=== PATIENT | female | born 2005 | race Two or more races ===

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

== ENCOUNTER 2025-04-03 16:36 | Emergency (ER) | payer MEDICAID ==
[~2025-04-03] VITALS: Ht 170.2 cm; Wt 109.0 kg
[2025-04-03 16:44] VITALS: TEMP 97
[2025-04-03 16:50] VITALS: PULSE 57; RESP 17; O2SAT 98
[2025-04-03] MEDS: MORPHINE SULFATE INJ 2 MG/ml SYRG IV ONE (17:20)
[2025-04-03] MEDS: ONDANSETRON HCL 4 MG/2 ML VIAL IV ONE (17:20)
[2025-04-03] MEDS: SODIUM CHLORIDE 0.9% 1,000 ML IV ONE (17:20)
[2025-04-03 19:01] LABS: Hematocrit 44.0 % (36.0-46.0); Hemoglobin 14.7 g/dL (12.2-16.2); Mean Corpuscular Hemoglobin 29.2 pg (28.0-32.0); Mean Corpuscular Volume 87.3 fL (80.0-100.0); Nucleated Red Blood Cells % 0.0 %
--- NOTE | 2025-04-03 19:11 | ED.PDOC ---
GI ASSESSMENT HPI Comments 19-year-old female who came to ER for abdominal pain. Patient has been drinking alcohol last night, shortly afterwards she started having epigastric abdominal pain followed they bouts of nausea and vomiting. She appeared very pale and diaphoretic. Patient denies any possibility of Chief Complaint: Abdominal Pain Time Seen by MD: 19:11 Reviewed Notes: Nurses Notes Allergies: Coded Allergies: NO KNOWN ALLERGIES (Unverified , 04/03/25) Home Meds Active Scripts Famotidine (PEPCID TABLET) 20 Mg Tb, 1 TAB PO BID PRN, #60 TAB 5 Refills Prov:LOAN REYNA MD 04/03/25 Ondansetron HCl (Ondansetron Hydrochloride) 8 Mg Tab, 8 MG PO Q6HP PRN, #30 TAB Prov:LOAN REYNA MD 04/03/25 Information Source: Patient Mode of Arrival: EMS Timing: Hours Duration: Since onset Quality: Burning, Cramping Vomitus: Watery Stool: Normal Recent: Ingestion of ETOH Past Medical History PAST MEDICAL HISTORY: PUD Surgical History: Appendectomy IMPROVEMENT ADVISOR History: Denies all IMPROVEMENT ADVISOR Hx Family History Family History: Reviewed,noncontributory to illness Social History Smoker: Non-Smoker Alcohol: Denies ETOH Use Drugs: Denies Drug Use Lives In: Home Constitutional: denies: chills, diaphoresis, fatigue, fever, malaise, sweats, weakness, others EENTM: denies: blurred vision, double vision, ear bleeding, ear discharge, ear drainage, ear pain, ear ringing, eye pain, eye redness, hearing loss, mouth pain, mouth swelling, nasal discharge, nose bleeding, nose congestion, nose pain, photophobia, tearing, throat pain, throat swelling, voice changes, others Respiratory: denies: cough, hemoptysis, orthopnea, SOB at rest, shortness of breath, SOB with excertion, stridor, wheezing, others Cardiovascular: denies: chest pain, dizzy spells, diaphoresis, Dyspnea on exertion, edema, irregular heart beat, left arm pain, lightheadedness, palpitations, PND, syncope, others Gastrointestinal: reports: abdominal pain, nausea, vomiting; denies: abdomen distended, blood streaked bowels, constipated, diarrhea, dysphagia, difficulty swallowing, hematemesis, melena, poor appetite, poor fluid intake, rectal bleeding, rectal pain, others Genitourinary: denies: abnormal vagina bleeding, burning, dyspareunia, dysuria, flank pain, frequency, hematuria, incontinence, pain, , vagina discharge, urgency, others Neurological: denies: dizziness, fainting, headache, left sided numbness, left sided weakness, numbness, paresthesia, pre-existing deficit, right sided numbness, right sided weakness, seizure, speech problems, tingling, tremors, weakness, others Musculoskeletal: denies: back pain, gout, joint pain, joint swelling, muscle pain, muscle stiffness, neck pain, others Integumetry: denies: bruises, change in color, change in hair/nails, dryness, laceration, lesions, lumps, rash, wounds, others Allergic/Immunocompromised: denies: Difficulty Healing, Frequent Infections, Hives, Itching, others Hematologic/Lymphatic: denies: anemia, blood clots, easy bleeding, easy bruising, swollen glands, others Endocrine: denies: excessive hunger, excessive sweating, excessive thirst, excessive urination, flushing, intolerance to cold, intolerance to heat, unexplained weight gain, unexplained weight loss, others Psychiatric: denies: anxiety, bipolar disorder, depression, hopeless, panic dis order, schizophrenia, sleepless, suicidal, others Physical Exam General Appearance: No Apparent Distress, Normal HEENT: Normal ENT Inspection, Pharynx Normal, TMs Normal Neck: Full Range of Motion, Non-Tender, Normal, Normal Inspection Respiratory: Chest Non-Tender, Lungs Clear, No Accessory Muscle Use, No Respiratory Distress, Normal Breath Sounds Cardiovascular: No Edema, No JVD, No Murmur, No Gallop, Normal Peripheral Pulses, Regular Rate/Rhythm Breast Exam: Deferred Gastrointestinal: Epigastric, No Organomegaly, No Pulsatile Mass, Normal Bowel Sounds, Soft, Tenderness Genitalia: Deferred Pelvic: Deferred Rectal: Deferred Extremities: No calf tenderness, Normal capillary refill, Normal inspection, Normal range of motion, Non-tender, No pedal edema Musculoskeletal : Apperance: Normal Neurologic: Alert, tourist camp attendant II-XII nml as Tested, No Motor Deficits, Normal Affect, Normal Mood, No Sensory Deficits Cerebellar Function: Normal Reflexes: Normal Skin: Dry, Normal Color, Warm Lymphatic: No Adenopathy Was a procedure done? Was a procedure done?: No GI differential Dx Differential Diagnosis: Diverticular disease, Gastritis/PUD, Gastroenteritis, Pancreatitis, UTI, Urolithiasis X-Ray, Labs, Meds, VS Vital Signs Date Time Temp Pulse Resp B/P (MAP) Pulse Ox O2 Delivery O2 Flow Rate FiO2 04/03/25 23:39 59 12 130/72 (91) 99 04/03/25 21:50 64 12 115/62 (79) 100 04/03/25 19:33 98 Room Air* 0 21 04/03/25 19:19 71 16 118/54 04/03/25 19:18 74 16 118/54 (75) 98 04/03/25 18:15 61 18 107/66 04/03/25 16:50 57 17 146/83 (104) 98 04/03/25 16:50 57 17 98 Room Air* 0 04/03/25 16:44 97.0 78 26 108/58 100 97.0 Lab Test 04/03/25 20:30 04/03/25 18:40 Range/Units Urine Color Yellow Yellow Urine Clarity Clear Clear Urine pH 7.0 5.0-9.0 Urine Specific [place] 1.029 1.001-1.035 Urine Protein Trace H Negative Urine Ketones 2+ H Negative Urine Blood Trace H Negative /uL Urine Nitrite Negative Negative Urine Bilirubin Negative Negative Urine Urobilinogen Normal Negative mg/dL Urine Leukocyte Esterase Negative Negative /uL Urine RBC 4 0 - 4 /hpf Urine Microscopic WBC 1 0-5 /HPF Urine Squamous Epithelial Cells Few <5 /hpf Urine Bacteria Few H None Seen /hpf Urine Mucus Few None Seen Urine Glucose Normal Normal mg/dL Urine Test Negative Negative White Blood Count 15.6 H 4.4-10.8 10^3/uL Red Blood Count 5.04 4.0-5.20 10^6/uL Hemoglobin 14.7 12.2-16.2 g/dL Hematocrit 44.0 36.0-46.0 % Mean Corpuscular Volume 87.3 80.0-100.0 fL Mean Corpuscular Hemoglobin 29.2 28.0-32.0 pg Mean Corpuscular Hemoglobin Concent 33.4 32.0-36.0 g/dL Red Cell Distribution Width 13.1 11.8-14.3 % Platelet Count 319 140-450 10^3/uL Mean Platelet Volume 8.3 6.9-10.8 fL Neutrophils (%) (Auto) 89.3 H 37.0-80.0 % Lymphocytes (%) (Auto) 7.0 L 10.0-50.0 % Monocytes (%) (Auto) 3.4 0.0-12.0 % Eosinophils (%) (Auto) 0.0 0.0-7.0 % Basophils (%) (Auto) 0.3 0.0-2.0 % Neutrophils # (Auto) 14.0 H 1.6-8.6 10 ^3/uL Lymphocytes # (Auto) 1.1 0.4-5.4 10 ^3/uL Monocytes # (Auto) 0.5 0-1.3 10 ^3/uL Eosinophils # (Auto) 0 0-0.8 10 ^3/uL Basophils # (Auto) 0 0-0.2 10 ^3/uL Nucleated Red Blood Cells 0.0 % Sodium Level 142 136-145 mmol/L Potassium Level 4.0 3.5-5.1 mmol/L Chloride Level 110 H 98-107 mmol/L Carbon Dioxide Level 20 20-31 mmol/L Anion Gap 12 5-15 Blood Urea Nitrogen 5 L 9-23 mg/dL Creatinine 0.70 0.550-1.02 mg/dL Glomerular Filtration Rate Calc 128 >90 mL/min BUN/Creatinine Ratio 7.1 L 10.0-20.0 Serum Glucose 92 74-106 mg/dL Calcium Level 8.7 8.7-10.4 mg/dL Total Bilirubin 0.5 0.2-1.0 mg/dL Aspartate Amino Transferase (AST) 27 13-40 U/L Alanine Aminotransferase (ALT) 17 7-40 U/L Alkaline Phosphatase 74 46-116 U/L Total Protein 7.7 5.7-8.2 g/dL Albumin 4.4 3.2-4.8 g/dL Lipase 32 12-53 U/L Beta HCG, Quantitative < 0.0 L 1.5-4.2 mIU/mL Plasma/Serum Blood Alcohol < 3.0 <10 mg/dL Current Medications Medications (Trade) Dose Ordered Sig/Conor Route Start Time Stop Time Status Last Admin Sodium Chloride 1,000 ml @ 1,000 mls/hr Q1H ONCE IV 04/03/25 16:45 04/03/25 17:44 DC 04/03/25 17:20 Morphine Sulfate 2 mg ONCE ONCE IV 04/03/25 16:45 04/03/25 16:46 DC 04/03/25 18:15 Ondansetron HCl (Zofran) 4 mg ONCE ONCE IV 04/03/25 16:45 04/03/25 16:46 DC 04/03/25 17:20 Time of 1ST Reevaluation: 19:09 Reevaluation 1ST: Unchanged Patient Education/Counseling: Diagnosis, Treatment Family Education/Counseling: Diagnosis, Treatment SEPSIS Sepsis Screen Date sepsis recognized/suspect: Apr 03, 2025 Time Sepsis recognized/suspect: 1649 Recent Procedure: No On Antibiotic Therapy: No Respiratory Rate >20: No Heart Rate >90: No Temp<36 C (96.8 F) or >38.3 C: No SBP <90 or MAP <65 mmHG: No New Acute Mental Status Change: No Is the patient on CPAP, BIPAP,: No Physician Orders Ct Ab Pel With Iv Con Only (04/03/25 20:07) Vital Signs Date Time Temp Pulse Resp B/P (MAP) Pulse Ox O2 Delivery O2 Flow Rate FiO2 04/03/25 23:39 59 12 130/72 (91) 99 04/03/25 21:50 64 12 115/62 (79) 100 04/03/25 19:33 98 Room Air* 0 04/03/25 19:19 71 16 118/54 04/03/25 19:18 74 16 118/54 (75) 98 04/03/25 18:15 61 18 107/66 04/03/25 16:50 57 17 146/83 (104) 98 04/03/25 16:50 57 17 98 Room Air* 0 21 04/03/25 16:44 97.0 78 26 108/58 100 97.0 Laboratory Tests Test 04/03/25 18:40 White Blood Count 15.6 10^3/uL (4.4-10.8) H Departure 1 Departure Time of Disposition: 21:00 Impression: Primary Impression: Nausea and vomiting Additional Impression: Upper abdominal pain Disposition: HOME / SELF CARE / HOMELESS Condition: Stable e-Prescriptions Famotidine (PEPCID TABLET) 20 Mg Tb 1 TAB PO BID PRN, #60 TAB 5 Refills Prov: LOAN REYNA MD 04/03/25 Ondansetron HCl (Ondansetron Hydrochloride) 8 Mg Tab 8 MG PO Q6HP PRN, #30 TAB Prov: LOAN REYNA MD 04/03/25 Discharged With: Self Critical Care Note Critical Care Time?: No Stability Stability form required: No Heart Score Heart Score: Heart Score Response (Comments) Value History N/A 0 EKG N/A 0 Age N/A 0 Risk Factors N/A 0 Troponin N/A 0 Total 0 I personally scribed for LOAN REYNA MD ([email or web address]) on 04/03/25 at 19:11. Electronically submitted by Roger Kaufman ([email or web address]). LOAN REYNA MD Apr 03, 2025 19:11
[2025-04-03 19:20] LABS: Alanine Aminotransferase 17 U/L (7-40); Albumin 4.4 g/dL (3.2-4.8); Alkaline Phosphatase 74 U/L (46-116); Anion Gap 12 (5-15); BUN/Creatinine Ratio 7.1 (10.0-20.0); Calcium 8.7 mg/dL (8.7-10.4); Carbon Dioxide 20 mmol/L (20-31); Glucose 92 mg/dL (74-106); Potassium 4.0 mmol/L (3.5-5.1); Sodium 142 mmol/L (136-145); Total Protein 7.7 g/dL (5.7-8.2)
[2025-04-03 19:21] LABS: Bilirubin, Total 0.5 mg/dL (0.2-1.0); Blood Urea Nitrogen 5 mg/dL (9-23); Chloride 110 mmol/L (98-107)
[2025-04-03 19:32] LABS: Lipase 32 U/L (12-53)
[2025-04-03 19:33] VITALS: O2SAT 98
[2025-04-03] MEDS: ONDANSETRON HCL 4 MG/2 ML VIAL ONE (20:28)
[2025-04-03 20:55] LABS: Urine Protein, UAD TRACE (Negative)
[2025-04-03] MEDS: IOHEXOL 300 MG/ML 100ML BOTTLE IJ ONE (21:55)
--- NOTE | 2025-04-03 22:31 | DVH ---
COMPUTERIZED TOMOGRAPHY ABDOMEN AND PELVIS WITH CONTRAST REASON FOR EXAM: abd pain COMPARISON: None TECHNIQUE: The exam was performed on a Multidetector scanner. Spiral scans were acquired from the bernard phragm to the symphysis pubis after administration of IV contrast. 2-D coronal and sagittal reformatt ed images were provided. Radiation optimization: All CT scans at this facility use at least one of th daphne dose optimization techniques: Automated exposure control mA and/or kV adjustment per patient size (includes targeted exams where dose is matched to clinical indication) or iterative reconstruction. CONTRAST ADMINISTRATION: 100 mL omnipaque 300 intravenously RADIATION DOSE: CTDI: 27.88 mGy DLP: 1713.99 mGy-cm FINDINGS: The visualized lung bases are grossly clear. There is no pleural effusion. There is no pericardial e ffusion. The spleen is not enlarged. The liver is normal in size and contour. No calcified gallstone is ident ified. The pancreas is grossly unremarkable. The adrenal glands are normal. The kidneys enhance symme trically. No solid renal mass is identified. There is no hydronephrosis of either kidney. There is no abdominal aortic aneurysm. No pathologic lymphadenopathy is identified by size criteria. There is no free fluid in the abdomen or pelvis. The uterus and ovaries are within normal limits for age. The u rinary bladder is decompressed and is not well evaluated. The colonic stool burden is small. The appe ndix is not seen and may be absent. There is no pathologic distention of the small bowel. No acute o sseous abnormality is identified. IMPRESSION: No acute abnormality identified in the abdomen or pelvis to explain the patient's abdominal pain.
[2025-04-03] MEDS ORDERED: ONDA-180 PO (22:56)
[2025-04-03] MEDS ORDERED: FAMO20TA10 PO (22:56)
[2025-04-03 23:39] VITALS: BP 130/72; PULSE 59; RESP 12; O2SAT 99
== END 2025-04-03 23:48 | disposition home or self-care (01) ==
LOC: EDBD 16:36 → ER 16:36 → EDUNIT# 16:36 → ER 23:48
DX: R10.10 Upper abdominal pain, unspecified (principal); R11.2 Nausea with vomiting, unspecified; Z90.49 Acquired absence of other specified parts of digestive tract; Z79.899 Other long term (current) drug therapy
CPT/HCPCS: 36415; 74177; 80053; 80320; 81001; 81025; 83690; 84702; 85025; 96361; 96374; 96375; 99285; J2270; J2405; J7030; Q9967

== ENCOUNTER 2025-04-24 23:01 | Emergency (ER) | payer MEDICAID ==
[~2025-04-24] VITALS: Ht 172.7 cm; Wt 136.0 kg
[~2025-04-24 23:01] MED LIST: FAMO20TA10 PO; ONDA-180 PO
[2025-04-25 00:30] VITALS: PULSE 103
[2025-04-25] MEDS ORDERED: ALBUTEROL SULF 2.5 MG/0.5ML(0.5%) NEB SOLN ONE (02:32)
[2025-04-25] MEDS ORDERED: IPRATROPIUM BROM 0.5 MG/2.5ML INH SOL ONE (02:32)
--- NOTE | 2025-04-25 02:35 | ED.PDOC ---
SOB-HPI HPI Comments 19 y/o morbidly obese F presents with c/c of shortness of breath, productive cough, runny nose, fever, chest pain, and generalized bodyaches for the past 2 days. Patient described phlegm as clear in appearance. Chest pain is nonradiating and midsternal. At home temperature of 102.0F. No reported known recent sick contact. No improvement or relief with [id number] Mucinex mediation use. Denies any abdominal pain, nausea, vomiting, chills, urinary problems, or further acute symptoms. Past medical history: asthma Past surgical history: denies Kingsley Marleen: Body aches, fever, productive cough, shortness of breath, history of asthma HPI: Poor Historian. Past Medical History: Past Surgical History: REVIEW OF SYSTEMS: CONSTITUTIONAL: Denies acute: , diaphoresis, chills, HEAD: Denies acute: headache, photophobia Eyes: Denies acute: Double vision, vision loss, eye pain, eye discharge. EARS: Denies acute: tinnitus, hearing loss, ear discharge, ear pain, THROAT: Denies acute: sore throat, swelling, difficulty swallowing , pain with swallowing, change in voice. NECK: Denies acute: neck pain, neck swelling, stiff neck. HEART: Denies acute : palpitations, LUNGS: Denies acute: , wheezing, , hemoptysis ABDOMEN: Denies acute: abdominal pain, Nausea, Vomiting, diarrhea, melena , hematemesis, hematochezia SKIN: Denies acute: rash, redness, lesions, itchiness. EXTREMITIES: Denies acute: calf pain, numbness, tingling, weakness, denies pain in extremity. Denies acute: Low back pain. Neuro: Denies acute: focal neurological deficit, motor or sensory focal neurological deficit, tremors, seizure like activity, confusion, dizziness, change in mental status, loss of bowel or bladder function, cauda equina like symptoms. : Denies acute: dysuria, hematuria, flank pain, increase in urinary frequency. PSYCH: Denies acute: hallucination, suicidal ideation, homicidal ideation. FEMALE: Denies acute: abnormal vaginal bleeding, foul odor, unusual discharge. PHYSICAL EXAM: General: ----mod----acute distress, awake and alert. Head: normocephalic, atraumatic. No raccoon's eyes, no florez sign. Neck: supple, trachea is midline, no swelling. Throat: Normal phonation. Eyes:, no erythema, no purulent discharge, no proptosis, no icterus. Heart: regular rate, regular rhythm, no significant murmur appreciated. Lungs: no apparent respiratory distress, Able to speak in full sentences. No wheezing, no rhonchi, no crackles. No stridors Clear to auscultation bilaterally. Abdomen: non tender to palpation, non distended, soft, no guarding, no rebound, + bowel sounds. obese. Neuro: Awake, Alert, oriented to name, self, situation, follows commands GCS=15. Speech is normal. Skin: no petechia, no purpura, no cyanosis, non-pale, not jaundice. Lower extremities: --no - Pitting edema no deformity, no focal swelling, no calf TTP. Makes eye contact. moves all four extremities. Face: no apparent facial droop. Ambulating in the ED independently. ED COURSE: DISCLAIMER: This medical document was created using an electronic medical record system with voice recognition software and computerized dictation system. Although this document has been carefully reviewed, there might still be some phonetic and typographical errors. Occasional wrong-word or "sound-alike" substitutions may have occurred due to the inherent limitations of voice recognition software. These areas are purely typographical due to imperfections of the software programs and do not reflect any compromise in the patient's medical care. Please read the chart carefully and recognize, using context, where these substitutions have occurred. 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 Was a procedure done?: No Differential Dx Differential Diagnosis: Other (DDx include ACS, unstable angina, anxiety, PE, pneumothroax, neoplasm, cardiac ischemia, COPD, asthma, CHF, pleural effusion, tobacco abuse, pneumonia, hypoxia, hypercapnia, anemia., infection/sepsis., pulmonary edema. Asthma, Cardiac tamponade, infection.) X-Ray, Labs, Meds, VS Vital Signs Date Time Temp Pulse Resp B/P (MAP) Pulse Ox O2 Delivery O2 Flow Rate FiO2 04/25/25 04:34 99.5 100 19 141/68 (92) 98 99.5 04/25/25 04:07 100.1 102 20 121/79 (93) 98 100.1 04/25/25 04:07 100.2 04/25/25 03:07 102.2 04/25/25 03:00 102.2 114 22 146/67 (93) 98 102.2 04/25/25 03:00 114 22 98 Room Air 04/25/25 02:46 20 96 Room Air* 0 21 04/25/25 02:35 109 04/25/25 00:32 109 04/25/25 00:30 102.1 103 18 129/86 (100) 99 102.1 04/25/25 00:30 103 04/25/25 00:30 107 04/24/25 23:03 99.1 89 22 130/87 97 99.1 Lab Test 04/25/25 02:50 04/25/25 02:38 Range/Units Influenza Type A Antigen Negative Negative Influenza Type B Antigen Negative Negative SARS-CoV-2 Antigen (Rapid) Negative NEGATIVE White Blood Count 10.6 4.4-10.8 10^3/uL Red Blood Count 5.43 H 4.0-5.20 10^6/uL Hemoglobin 15.8 12.2-16.2 g/dL Hematocrit 46.4 H 36.0-46.0 % Mean Corpuscular Volume 85.4 80.0-100.0 fL Mean Corpuscular Hemoglobin 29.2 28.0-32.0 pg Mean Corpuscular Hemoglobin Concent 34.1 32.0-36.0 g/dL Red Cell Distribution Width 13.6 11.8-14.3 % Platelet Count 294 140-450 10^3/uL Mean Platelet Volume 8.7 6.9-10.8 fL Neutrophils (%) (Auto) 77.5 37.0-80.0 % Lymphocytes (%) (Auto) 10.5 10.0-50.0 % Monocytes (%) (Auto) 11.1 0.0-12.0 % Eosinophils (%) (Auto) 0.5 0.0-7.0 % Basophils (%) (Auto) 0.4 0.0-2.0 % Neutrophils # (Auto) 8.2 1.6-8.6 10 ^3/uL Lymphocytes # (Auto) 1.1 0.4-5.4 10 ^3/uL Monocytes # (Auto) 1.2 0-1.3 10 ^3/uL Eosinophils # (Auto) 0.1 0-0.8 10 ^3/uL Basophils # (Auto) 0 0-0.2 10 ^3/uL Nucleated Red Blood Cells 0.0 % Sodium Level 140 136-145 mmol/L Potassium Level 3.6 3.5-5.1 mmol/L Chloride Level 104 98-107 mmol/L Carbon Dioxide Level 22 20-31 mmol/L Anion Gap 14 5-15 Blood Urea Nitrogen 10 9-23 mg/dL Creatinine 0.97 0.550-1.02 mg/dL Glomerular Filtration Rate Calc 86 >90 mL/min BUN/Creatinine Ratio 10.3 10.0-20.0 Serum Glucose 101 74-106 mg/dL Lactic Acid Level 1.3 0.4-2.0 mmol/L Calcium Level 9.8 8.7-10.4 mg/dL Total Bilirubin 0.8 0.2-1.0 mg/dL Aspartate Amino Transferase (AST) 19 13-40 U/L Alanine Aminotransferase (ALT) 14 7-40 U/L Alkaline Phosphatase 72 46-116 U/L Total Protein 8.4 H 5.7-8.2 g/dL Albumin 5.0 H 3.2-4.8 g/dL Current Medications Medications (Trade) Dose Ordered Sig/Conor Route Start Time Stop Time Status Last Admin Sodium Chloride 1,000 ml @ 1,000 mls/hr Q1H ONCE IV 04/25/25 02:30 04/25/25 03:29 DC 04/25/25 03:17 Ceftriaxone Sodium 50 ml @ 100 mls/hr ONCE ONCE IV 04/25/25 02:30 04/25/25 02:59 DC 04/25/25 03:45 Albuterol (Ventolin Medneb) 2.5 mg ONCE ONCE NEB 04/25/25 02:30 04/25/25 02:31 DC 04/25/25 02:46 Ipratropium [place] (Atrovent Medneb) 1 mg ONCE ONCE NEB 04/25/25 02:30 04/25/25 02:31 DC 04/25/25 02:45 Methylprednisolone Sodium Succinate (Solu Medrol) 125 mg ONCE ONCE IV 04/25/25 02:30 04/25/25 02:31 DC 04/25/25 03:20 Acetaminophen (Tylenol Tablet) 650 mg ONCE ONCE PO 04/25/25 02:45 04/25/25 02:46 DC 04/25/25 03:07 Sodium Chloride 1,000 ml @ 1,000 mls/hr Q1H ONCE IV 04/25/25 04:00 04/25/25 04:59 DC 04/25/25 04:13 [place] [address] Ph: [phone] DIAGNOSTIC IMAGING Diagnostic Imaging Report : [id number] Signed PATIENT: MARLEEN CRAWFORD ACCT: [id number] UNIT: [id number] : 2005 LOC: ER ROOM / BED: / AGE / SEX: 19 / F ADM STATUS: REG ER SERVICE 0 ORDERING PHYSICIAN: IZA STREETER DO PROCEDURE(s): CXRP - CHEST PORTABLE REASON: sob ORDER NUMBER(s): [id number], ACCESSION NUMBER(s): [id number] CHEST RADIOGRAPH Indication: sob Technique: Single frontal view of the chest was obtained Comparison: None IMPRESSION: Heart appears normal in size. The lungs appear clear without focal airspace opacity, effusion, or pneumothorax ATED BY: CATHY DUFFY MD DICTATED DATE/TIME: 04/25/25334 SIGNED BY: CATHY DUFFY MD SIGNED DATE/TIME: 04/25/25334 CC: Time of 1ST Reevaluation: 03:00 Reevaluation 1ST: Unchanged Time of 2ND Reevaluation: 00:00 Reevaluation 2ND: Improved Patient Education/Counseling: Diagnosis, Treatment Family Education/Counseling: No Family Present Comments MDM: patient presented with the above HPI.--fever and respiratory symptoms----workup was initiated. patient was found with the above mentioned diagnosis. the following medications were ordered: please refer to order lists of meds and tests obtained by myself Dr. Streeter. Patient ED course and VS have been stabilized. Patient has been reassessed in the ED and remained in a stable condition. Pertinent incidental findings were discussed with the patient and/or family. Patient/family voices understanding and is agreeable with plan. Patient has been observed in the ED adequate length of time to insure improvement/stability. Escalation of care considered: Consideration of escalation to observation or admission Swabs were unremarkable. Labs are essentially unremarkable. Patient was given Tylenol for fever control and fluid hydration. Patient was given a DuoNeb tr eatment. Patient was DISCHARGED home in a stable condition. All the reports of any imaging studies that were ordered by myself were reviewed by myself. SEPSIS Sepsis Screen Date sepsis recognized/suspect: Apr 24, 2025 Time Sepsis recognized/suspect: 2306 Recent Procedure: No On Antibiotic Therapy: No Respiratory Rate >20: No Heart Rate >90: No Temp<36 C (96.8 F) or >38.3 C: No SBP <90 or MAP <65 mmHG: No New Acute Mental Status Change: No Is the patient on CPAP, BIPAP,: No Physician Orders Senior Bi Developer (04/25/25 ) Chest Portable (04/25/25 02:21) Blood Culture (04/25/25 02:21) Urinalysis (04/25/25 02:21) Vital Signs Date Time Temp Pulse Resp B/P (MAP) Pulse Ox O2 Delivery O2 Flow Rate FiO2 04/25/25 04:34 99.5 100 19 141/68 (92) 98 99.5 04/25/25 04:07 100.1 102 20 121/79 (93) 98 100.1 04/25/25 04:07 100.2 04/25/25 03:07 102.2 04/25/25 03:00 102.2 114 22 146/67 (93) 98 102.2 04/25/25 03:00 114 22 98 Room Air 04/25/25 02:46 20 96 Room Air* 0 21 04/25/25 02:35 109 04/25/25 00:32 109 04/25/25 00:30 102.1 103 18 129/86 (100) 99 102.1 04/25/25 00:30 103 04/25/25 00:30 107 04/24/25 23:03 99.1 89 22 130/87 97 99.1 Laboratory Tests Test 04/25/25 02:38 Lactic Acid Level 1.3 mmol/L (0.4-2.0) White Blood Count 10.6 10^3/uL (4.4-10.8) Departure 1 Departure Time of Disposition: 05:14 Impression: Primary Impression: Body aches Additional Impressions: Cough URI (upper respiratory infection) Fever Disposition: HOME / SELF CARE / HOMELESS Condition: Stable Additional Instructions: Additional instructions: Please read all instructions provided in this packet carefully. You MUST follow-up with your primary care/family doctor in 1 to 2 days. If you are unable to see your primary care/family doctor, please return to our emergency room for re-assessment and re-evaluation in 1 to 2 days. Return to the emergency room here in our facility or to the nearest ER [facility] if your symptoms change or worsen. CONSULTATIONS: you MUST Follow-up for consultation as soon as possible with: -pulmonology in 1-2 days. Please call for appointment. You MUST call the consultants office yourself to make an appointment. You may need to arrange that through your insurance and/or your primary/family doctor. If you are unable to see the [employer] consultant in 1 to 2 days, you must return to our emergency room (or any other ER of your choice) for re-assessment and re- evaluation. Adequate fluid hydration. Use Tylenol ibuprofen [id number] as needed for fever control. Although you have been discharged from the Emergency Department, this does not mean that you have a "clean bill of health". No definitive diagnosis for your symptoms has been made today. It is possible that you are in the process of developing a serious illness. This is why you must return to the ED without fail if any new or worsening symptoms develop. e-Prescriptions Albuterol Sulfate (Albuterol Sulfate Hfa) 108 Mcg/Act Aer 108 MCG IN Q4HPRN PRN for 7 Days, #1 AER Prov: IZA STREETER DO 04/25/25 Azithromycin (Zithromax Tri-Tobin) 500 Mg Tab 500 MG PO DAILY for 7 Days, #7 TAB Prov: IZA STREETER DO 04/25/25 Discharged With: Self Critical Care Note Critical Care Time?: No Heart Score Heart Score: Heart Score Response (Comments) Value History N/A 0 EKG N/A 0 Age N/A 0 Risk Factors N/A 0 Troponin N/A 0 Total 0 I personally scribed for IZA STREETER DO ([email or web address]) on 04/25/25 at 02:35. Electronically submitted by Israel Jefferson ([email or web address]). IZA STREETER DO Apr 25, 2025 02:35
[2025-04-25] MEDS: IPRATROPIUM BROM 0.5 MG/2.5ML INH SOL NEB ONE (02:45)
[2025-04-25] MEDS: ALBUTEROL SULF 2.5 MG/0.5ML(0.5%) NEB SOLN NEB ONE (02:46)
[2025-04-25] MEDS ORDERED: ACETAMINOPHEN 325 MG TAB PO ONE (03:07)
[2025-04-25] MEDS: ACETAMINOPHEN 325 MG TAB PO ONE (03:07)
[2025-04-25 03:12] LABS: Hematocrit 46.4 % (36.0-46.0); Hemoglobin 15.8 g/dL (12.2-16.2); Mean Corpuscular Hemoglobin 29.2 pg (28.0-32.0); Mean Corpuscular Volume 85.4 fL (80.0-100.0); Nucleated Red Blood Cells % 0.0 %
[2025-04-25] MEDS: SODIUM CHLORIDE 0.9% 1,000 ML IV ONE ×2 (03:17→04:13)
[2025-04-25 03:19] LABS: Alanine Aminotransferase 14 U/L (7-40); Alkaline Phosphatase 72 U/L (46-116); Anion Gap 14 (5-15); BUN/Creatinine Ratio 10.3 (10.0-20.0); Bilirubin, Total 0.8 mg/dL (0.2-1.0); Blood Urea Nitrogen 10 mg/dL (9-23); Calcium 9.8 mg/dL (8.7-10.4); Carbon Dioxide 22 mmol/L (20-31); Chloride 104 mmol/L (98-107); Glucose 101 mg/dL (74-106); Potassium 3.6 mmol/L (3.5-5.1); Sodium 140 mmol/L (136-145)
[2025-04-25 03:20] LABS: Albumin 5.0 g/dL (3.2-4.8); Total Protein 8.4 g/dL (5.7-8.2)
[2025-04-25] MEDS: methylPREDNISolone SOD SUCC 125 MG/2 ML VL IV ONE (03:20)
[2025-04-25] MEDS ORDERED: methylPREDNISolone SOD SUCC 125 MG/2 ML VL ONE (03:26)
--- NOTE | 2025-04-25 03:36 | DVH ---
CHEST RADIOGRAPH Indication: sob Technique: Single frontal view of the chest was obtained Comparison: None IMPRESSION: Heart appears normal in size. The lungs appear clear without focal airspace opacity, effusion, or pneumothorax
[2025-04-25 04:08] LABS: COVID19 ANTIGEN SOFIA FIA NEGATIVE (NEGATIVE)
[2025-04-25 04:34] VITALS: BP 141/68; PULSE 100; RESP 19; TEMP 99.5; O2SAT 98
[2025-04-25] MEDS ORDERED: AZITTAB2 PO (05:16)
[2025-04-25] MEDS ORDERED: ALBU108A5 IN (05:17)
[2025-04-25] MEDS ORDERED: BACDST PO (23:26)
--- NOTE | 2025-04-26 15:01 | ECG ---
[facility] Test Date: 2025-04-25 Test Time: 00:30:39 Pat Name: MARLEEN CRAWFORD Department: ED Room: Gender: F Eye Technician: dorita : 2005 Requested By: IZA STREETER Order Number: [id number] Reading MD: Alejandro Abdullahi Measurements Intervals [place] Rate: 107 P: 56 NE: 135 QRS: 98 QRSD: 91 T: 5 QT: 314 QTc: 419 Interpretive Statements Sinus tachycardia Borderline right axis deviation Borderline repolarization abnormality Baseline wander in lead(s) I,III,aVL,aVF,V1,V2,V3 Electronically Signed On 04-28-2025 17:43:23 PST by Alejandro Abdullahi Please click the below link to view image of tracing.
== END 2025-04-25 05:29 | disposition home or self-care (01) ==
LOC: ER 23:01
DX: J06.9 Acute upper respiratory infection, unspecified (principal); M79.18 Myalgia, other site; J45.909 Unspecified asthma, uncomplicated; Z20.822 Contact with and (suspected) exposure to COVID-19; Z87.11 Personal history of peptic ulcer disease; Z90.49 Acquired absence of other specified parts of digestive tract
CPT/HCPCS: 36415; 71045; 80053; 83605; 85025; 87040; 87077; 87186; 87426; 87804; 93005; 94640; 96361; 96365; 96375; 99285; J0696; J2919; J7030